=== PATIENT | female | born 1950 | race Caucasian/White ===

== ENCOUNTER 2021-11-27 19:59 | Emergency (ER) | payer MEDICARE, OTHER ==
[2021-11-27 20:22] VITALS: BP 164/79; PULSE 96; RESP 20; TEMP 98.1
--- NOTE | 2021-11-27 21:24 | CT ---
EXAMINATION TYPE: CT brain cspine wo con, CT facial bones wo con CT DLP: 1358 mGycm, Automated exposure control for dose reduction was used. DATE OF EXAM: 11/27/2021 9:00 PM COMPARISON: None.. CLINICAL INDICATION:Female, 71 years old with history of fall, on thinners; PAIN AFTER FALL TODAY. TECHNIQUE: Brain: Multiple axial CT images of the brain were obtained without IV contrast. Cspine: Axial CT images from the skull base to the inferior aspect of T2 we obtained without intraven ous contrast. Coronal and sagittal reformatted images were also reviewed. Multiple unenhanced axial CT images were obtained of the facial bones soft tissue and bone windows. Coronal, axial and sagittal reformatted images were also provided in soft tissue and bone windows and submitted for interpretation. Additional 3-D reformatted images were obtained on a separate worksta tion. FINDINGS: Brain: Extra-axial spaces: No abnormal extra-axial fluid collections. Ventricular system: Within normal limits Cerebral parenchyma: No acute intraparenchymal hemorrhage or mass effect. The tariq-white junction is well differentiated. Cerebellum: Unremarkable. Mass effect: No evidence of midline shift. Intracranial vasculature: unremarkable Soft tissues: Normal. Calvarium/osseous structures: No depressed skull fracture. Paranasal sinuses and mastoid air cells: Clear. Visualized orbits: Orbital contents are intact. Cervical spine: Fracture: None. Osseous structures: Unremarkable Vertebral alignment: Within normal limits. Spinal canal/Neural Foramina: No evidence of significant spinal canal narrowing. No evidence for sign ificant neural foraminal stenosis. Neck soft tissues: Prevertebral soft tissues are within normal limits. Other: The airway is patent. The lung apices are clear. Facial: There is no evidence of fracture, subluxation, dislocation, or significant soft tissue swelling. The orbital contents are unremarkable.The temporal-mandibular joints appear symmetric. The visualized por tion of the paranasal sinuses appear clear. Scattered Periodontal disease. IMPRESSION: 1. No acute intracranial process. 2. No evidence of facial bone fracture. 3. No evidence of cervical spine fracture. 4. Mild multilevel degenerative disc disease.
--- NOTE | 2021-11-27 21:29 | XR ---
EXAMINATION TYPE: XR wrist complete RT DATE OF EXAM: 11/27/2021 8:49 PM INDICATION: Patient age:Female; 71 years old; Reason for study: fall; COMPARISON: None TECHNIQUE: 3 views of the right wrist. FINDINGS: Acute intra-articular fracture through the radius with shortening. Multiple fracture lines are seen extending to the intra-articular portion. Remainder of the visualized structures are intact. No radiopaque foreign bodies. IMPRESSION: Comminuted intra-articular fracture of the distal right radius.
[2021-11-27] MEDS ORDERED: HYDROcodone/APAP 7.5-325MG 1 EACH TAB PO ONE (21:48)
--- NOTE | 2021-11-27 21:53 | ED ---
General Adult HPI - General Chief complaint: Fall Stated complaint: Fall/R Wrist pain/Hit head Time Seen by Provider: 11/27/21 21:30 Source: patient, RN notes reviewed, old records reviewed Mode of arrival: ambulatory Limitations: no limitations - History of Present Illness Initial comments: 71-year-old female presenting status post fall with right wrist pain and head injury. Patient tripped on a step entering the room. She had head injury without loss conscious. She is on antiplatelet medication. She complained predominantly of right wrist pain. No chest or abdominal pain. No lower extremity injuries. - Related Data Previous Rx's Medication Instructions Recorded HYDROcodone/APAP 7.5-325MG [[place] 1 tab PO Q6HR PRN 3 Days #12 tab 11/27/21 7.5-325] Allergies Allergy/AdvReac Type Severity Reaction Status Date / Time iodine Allergy Rash/Hives Verified 11/27/21 20:22 Review of Systems ROS Statement: Those systems with pertinent positive or pertinent negative responses have been documented in the HPI. ROS Other: All systems not noted in ROS Statement are negative. Past Medical History Past Medical History: Cancer, CVA/TIA, Diabetes Mellitus, Hypertension History of Any Multi-Drug Resistant Organisms: None Reported Past Surgical History: Hysterectomy Past Psychological History: No Psychological Hx Reported Smoking Status: Never smoker Past Alcohol Use History: None Reported Past Drug Use History: None Reported General Exam Limitations: no limitations General appearance: alert, in no apparent distress Head exam: Present: normocephalic Eye exam: Present: EOMI, periorbital swelling, periorbital tenderness Neck exam: Present: normal inspection. Absent: tenderness, meningismus Respiratory exam: Present: normal lung sounds bilaterally. Absent: respiratory distress, wheezes Cardiovascular Exam: Present: regular rate, normal rhythm GI/Abdominal exam: Absent: distended Extremities exam: Present: tenderness, joint swelling (Right wrist tenderness, no gross deformity, distal pulses intact, range of motion at the fingers is somewhat limited by pain.). Absent: full ROM Neurological exam: Present: alert, oriented X3. Absent: motor sensory deficit Psychiatric exam: Present: normal affect, normal mood Skin exam: Present: warm, dry Course Vital Signs 11/27/21 20:18 Temperature 98.1 F Pulse Rate 96 Respiratory 20 Rate Blood Pressure 164/79 O2 Sat by Pulse 96 Oximetry Procedures - Orthopedic Splinting/Casting Injury #1 Side: right Upper Extremity Injury Location: wrist Upper Extremity Immobilizer: sugar tong splint Medical Decision Making - Medical Decision Making 71-year-old female with head injury, right wrist injury. X-ray of the wrist reveals an intra-articular nondisplaced fracture through the distal radius. CT imaging of the brain, C-spine, and facial bones is obtained which is negative for traumatic injury. Patient is well-appearing. There is no gross deformity to the wrist. Distal pulses are intact. She's placed in a splint and given orthopedic follow-up. She is prescribed [place] for pain. Disposition Clinical Impression: Fall, Radius fracture Disposition: HOME SELF-CARE Condition: Fair Instructions (If sedation given, give patient instructions): Concussion (ED), Wrist Fracture in Adults (ED) Prescriptions: HYDROcodone/APAP 7.5-325MG [[place] 7.5-325] 1 tab PO Q6HR PRN 3 Days #12 tab PRN Reason: pain Is patient prescribed a controlled substance at d/c from ED?: No Referrals: Nonstaff,Physician [Primary Care Provider] - 1-2 days Theresa Bhatt DO [Doctor of Osteopathic Medicine] - 1-2 days Time of Disposition: 21:49
== END 2021-11-27 22:15 | disposition home or self-care (01) ==
LOC: EC 19:59
DX: S52.571A Other intraarticular fracture of lower end of right radius, initial encounter for closed fracture (principal); S09.90XA Unspecified injury of head, initial encounter; E11.9 Type 2 diabetes mellitus without complications; I10 Essential (primary) hypertension; Z88.8 Allergy status to other drugs, medicaments and biological substances; W19.XXXA Unspecified fall, initial encounter
CPT/HCPCS: 29125; 70450; 70486; 72125; 99284